=== PATIENT | male | born 1995 ===

== ENCOUNTER 2020-08-27 12:52 | Outpatient (REF) | payer OTHER, SELFPAY ==
[2020-08-27 14:45] LABS: Monotest Negative (Negative)
[2020-08-28 13:02] LABS: EBV-VCA IgM Ab <36.00 U/mL
== END 2020-08-27 12:53 | disposition home or self-care (01) ==
LOC: HO.LAB 12:52
PROVIDERS: Visit Provider Nurse Practitioner Family
DX: J02.9 Acute pharyngitis, unspecified (principal); Z20.822 Contact with and (suspected) exposure to COVID-19
CPT/HCPCS: 36415; 86308; 86664; 86665; 87071; U0003

== ENCOUNTER 2021-04-27 08:54 | Outpatient (REF) | payer OTHER, SELFPAY | END 2021-04-27 08:55 | disposition home or self-care (01) | LOC: HO.HMGCLDS 08:54 | PROVIDERS: Visit Provider Internal Medicine | DX: Z20.822 Contact with and (suspected) exposure to COVID-19 (principal) | CPT/HCPCS: C9803; U0003; U0005 ==

== ENCOUNTER 2024-03-18 08:51 | Outpatient (AMB) | payer BC, SELFPAY ==
[2024-03-18 08:53] VITALS: BP 114/62; PULSE 73; O2SAT 98; BMI 25.4
--- NOTE | 2024-03-18 08:53 | MHC.PC.OV ---
Vital Signs 03/18/24 08:53 Height 6 ft Weight 187 lb BMI 25.4 BP 114/62 Blood Pressure Location Lt brachial Position Sitting Pulse 73 Pulse Source Pulse Oximeter Pulse Oximetry (%) 98 Oxygen Delivery Method Room Air Intake Visit Reasons: PE Intake Note: Patient is here today for a physical. Saturation Diver Required: No Allergies No Known Allergies Allergy (Verified 03/18/24 09:31) Medication List - Last Reconciled 03/18/24 by Akin Lau MD benzoyl peroxide 10% 1 appl topical DAILY valacyclovir 500 mg PO BID Tobacco use date assessed: 03/18/24 Dental Screening Dental Screen Date: 03/18/24 Did you have a dental visit in the last 12 months?: Yes Did you have a dental problem in the last 6 months where you did not have access to dental care?: No Was dental information given to patient?: Patient has dentist HPI PE HPI Details 28-year-old male presents to the office requesting an annual physical. In addition patient would like treatment for his acne. Patient periodically gets an outbreak in the face and is well controlled with benzoyl peroxide. Patient is requesting a refill of the same. He also gets outbreaks of herpes simplex and would like to get a handle prescription for valacyclovir. He has had these outbreaks in the past few years. Patient also has disfigured nails that he would like to have examined. Patient reports that he has been trying [id number]-vtn-snsrolw medications for seborrheic dermatitis in his scalp. He is use Selsun and ketoconazole shampoo use. Symptoms improved but return. [facility] Medical History (Updated 03/18/24 @ 09:34 by Akin Lau MD) Acne Nail dystrophy Herpes simplex infection Social History Housing: Apartment Patient Tobacco Use Status: Never used Tobacco service: No Current occupational status: employed Cognitive needs: No Hearing needs: No Vision needs: No Questionnaire PHQ-9 Over the last 2 weeks, how often have you been bothered by any of the following problems? 1. Little interest or pleasure in doing things: not at all 2. Feeling down, depressed, or hopeless: not at all 3. Trouble falling or staying asleep, or sleeping too much: not at all 4. Feeling tired or having little energy: not at all 5. Poor appetite or overeating: not at all 6. Feeling bad about yourself - or that you are a failure or have let yourself or your family down: not at all 7. Trouble concentrating on things, such as reading the newspaper or watching television: not at all 8. Moving or speaking so slowly that other people could have noticed. Or the opposite - being so fidgety or restless that you have been moving around a lot more than usual: not at all 9. Thoughts that you would be better off or of hurting yourself in some way: not at all Total score: 0 Depression Screening Interpretation: Negative Depression Screening Done: Yes 73302 - PHQ-9 Billing: Yes Source: Developed by Drs. Saurabh White, Marisela Mckeon, Robert Petersen and colleagues, with an educational hayder from [employer]. Thrive Questionnaire Date Thrive assessed: 03/18/24 I am a: Patient What is your living situation today?: I have a steady place to live Within the past 12 months, did the food you bought not last and you didn't have the money to get more?: Never true Within the past 12 months, did you worry whether your food would run out before you got money to buy more?: Never true Do you have trouble paying for medicines?: No Do you have trouble getting transportation to medical appointments?: No Do you have trouble paying your heating and electricity bill?: No Do you have trouble taking care of your child, family member or friend?: No Do you have trouble with day-to-day activities such as bathing, preparing meals, shopping, managing finances, etc.?: No Are you currently unemployed and looking for a job?: No Are you interested in more education?: No Please select the resources that you would like help with: None Currently or been in a relationship where the following occur: No concerns reported THRIVE Score: 0 AUDIT C Alcohol Use Questionnaire (AUDIT-C) 1. How often do you have a drink containing alcohol?: Monthly or less (once a month ) 2. How many drinks containing alcohol do you have on a typical day when you are drinking?: 1 or 2 3. How often do you have six or more drinks on one occasion?: Never Total Score: 1 KEYONNA-7 AMB Questionnaire KEYONNA-7 Date KEYONNA - 7 assessed: 03/18/24 Feeling nervous, anxious, or on edge: 0 = Not at all Not being able to stop or control worryin = Not at all Worrying too much about different things: 0 = Not at all Trouble relaxin = Not at all Being so restless that it is hard to sit still: 0 = Not at all Becoming easily annoyed or irritable: 0 = Not at all Feeling afraid as if something awful might happen: 0 = Not at all Total KEYONNA-7 score (0-4 normal; 5-9 mild; 10-14 moderate; 15-21 severe): 0 Source: Developed by Drs. Saurahb White, Marisela Mckeon, Robert Petersen and colleagues, with an educational hayder from [employer]. KEYONNA-7 Assessment Billing KEYONNA-7 Assessment Tool: KEYONNA-7 Assessment 69621 Physical exam (Primary Care) Vital Signs: Last Vital Signs Pulse 73 03/18/24 08:53 BP 114/62 03/18/24 08:53 Pulse Ox 98 03/18/24 08:53 Oxygen Delivery Method Room Air 03/18/24 08:53 Care Plan Goal for BP management: Blood pressure is in range. BMI result Body Mass Index 25.4 Tobacco/Smoking Status: Tobacco use Status Tobacco use date assessed 03/18/24 03/18/24 08:54 Patient Tobacco Use Status Never used Tobacco 03/18/24 09:01 PHQ-9: PHQ-9 Score PHQ-9: Total score 0 03/18/24 08:54 Depression Screening Interpretation: Negative Thrive Assessment: Date of Thrive Assessment Date Thrive assessed 03/18/24 03/18/24 08:54 Currently or been in a relationship where the following occur: No concerns reported Const General: cooperative and healthy appearing Nutritional Appearance: well nourished Orientation/consciousness: patient oriented x3 Limitations: no limitations HENMT Head: Yes normal to inspection Eyes General: appearance normal, both eyes and all related structures Neck Neck: Yes normal visual inspection Chest Chest palpation & inspection: normal palpation of entire chest wall Resp Effort & Inspection: normal respiratory effort Skin Other: Face: Scattered erythematous lesion. No active acne present. Neuro General: patient oriented x3 Extrem Other: Right and left foot: Dystrophic nails present. Assessment and Plan Assessment & Plan (1) Nail dystrophy: Code(s): L60.3 - Nail dystrophy Plan: Podiatry consult for nail biopsy and treatment of onychomycosis if present. (2) Herpes simplex infection: Code(s): B00.9 - Herpesviral infection, unspecified Plan: Prescription for valacyclovir called in. (3) Annual physical exam: Code(s): Z00.00 - Encounter for general adult medical examination without abnormal findings Plan Blood work has been ordered. Will call with the results. Medications: New valacyclovir 500 mg PO BID 10 tabs 1RF benzoyl peroxide 10% 1 appl topical DAILY 142 grams 0RF Coding Level of Care Code New Pt Level 4 (89313) New Pt Prev Care 18-39yr(52119 Diagnoses Nail dystrophy L60.3 Herpes simplex infection B00.9 Annual physical exam Z00.00 Additional Codes KEYONNA-7 Assessment Billing - KEYONNA-7 Assessment Tool: KEYONNA-7 Assessment 18624 ([id number])
== END 2024-03-18 09:20 | disposition home or self-care (01) ==
PROVIDERS: PCP Physician Assistant; Visit Provider Internal Medicine
DX: Z00.00 Encounter for general adult medical examination without abnormal findings (principal); L60.3 Nail dystrophy; B00.9 Herpesviral infection, unspecified
CPT/HCPCS: 99203; 99385

== ENCOUNTER 2025-04-18 14:57 | Outpatient (AMB) | payer OTHER, SELFPAY ==
[2025-04-18 15:07] VITALS: BP 120/52; PULSE 86; RESP 18; TEMP 36.3; O2SAT 97; BMI 25.4
--- NOTE | 2025-04-18 15:07 | A.OFFPC_ITS ---
Vital Signs 04/18/25 15:07 Height 6 ft Weight 187 lb 2 oz BMI 25.4 BP 120/52 L Blood Pressure Location Lt brachial Position Sitting Respiration 18 Pulse 86 Pulse Source Pulse Oximeter Temp 97.3 F Temp Source Temporal Artery Scan Pulse Oximetry (%) 97 Oxygen Delivery Method Room Air Intake Visit Reasons: annual exam/kian Dr Tafoya Clinical Training Specialist Required: No Accompanied by: Self / Same As Patient Allergies No Known Allergies Allergy (Verified 04/18/25 15:16) Medication List - Last Reconciled 04/18/25 by OSIEL Hernandez benzoyl peroxide 10% 1 appl topical DAILY valacyclovir 500 mg PO BID Tobacco use date assessed: 04/18/25 Dental Screening Dental Screen Date: 04/18/25 Did you have a dental visit in the last 12 months?: Yes Did you have a dental problem in the last 6 months where you did not have access to dental care?: No Was dental information given to patient?: Patient has dentist HPI annual exam/kian Dr Tafoya HPI Details 29-year-old male presenting for annual p hysical Dentist: up to date Eye:up to date Snellen: Right: Left: Corrected vision: no STI screening: Colonoscopy:n/a Pap Smer:n/a PHQ-9: Flu: usually COVID: x1 Tdap: reports that this is within 10 years Diet: fluctuate when he is working out Exercise: working The patient reports experiencing severe dandruff, which has led him to keep his hair shorter than usual. He has tried various fndn-qog-feryowv treatments, including Nizoral and Selsun Blue, with limited success. Currently, he is using castor oil and coconut oil to manage the dryness and moisturize his scalp. The patient also experiences cold sores approximately every six to eight weeks. He takes medication during episodes, which typically resolves the sores by the third day. He recently underwent a health screening at work, which included blood pressure and glucose level checks, and was deemed healthy. He exercises regularly, att ending the gym four to five times a week and playing basketball for cardiovascular activity. His weight is currently 187 pounds, and he is 6'1 tall, with a BMI of 25.4. [facility] Medical History Acne Nail dystrophy Herpes simplex infection Social History Housing: Apartment Patient Tobacco Use Status: Never used Tobacco service: No Current occupational status: employed Cognitive needs: No Hearing needs: No Vision needs: No Questionnaire PHQ-9 Over the last 2 weeks, how often have you been bothered by any of the following problems? 1. Little interest or pleasure in doing things: not at all 2. Feeling down, depressed, or hopeless: not at all 3. Trouble falling or staying asleep, or sleeping too much: not at all 4. Feeling tired or having little energy: not at all 5. Poor appetite or overeating: not at all 6. Feeling bad about yourself - or that you are a failure or have let yourself or your family down: not at all 7. Trouble concentrating on things, such as reading the newspaper or watching television: not at all 8. Moving or speaking so slowly that other people could have noticed. Or the opposite - being so fidgety or restless that you have been moving around a lot more than usual: not at all 9. Thoughts that you would be better off or of hurting yourself in some way: not at all Total score: 0 Depression Screening Interpretation: Negative Depression Screening Done: Yes 67622 - PHQ-9 Billing: Yes Source: Developed by Drs. Saurabh White, Marisela Mckeon, Robert Petersen and colleagues, with an educational hayder from [employer] Thrive Questionnaire Date Thrive assessed: 04/18/25 I am a: Patient What is your living situation today?: I have a steady place to live Within the past 12 months, did the food you bought not last and you didn't have the money to get more?: I choose not to answer this question Within the past 12 months, did you worry whether your food would run out before you got money to buy more?: I choose not to answer this question Do you have trouble paying for medicines?: No Do you have trouble getting transportation to medical appointments?: No Do you have trouble paying your heating and electricity bill?: No Do you have trouble taking care of your child, family member or friend?: No Do you have trouble with day-to-day activities such as bathing, preparing meals, shopping, managing finances, etc.?: No Are you currently unemployed and looking for a job?: No Are you interested in more education?: No Please select the resources that you would like help with: None Currently or been in a relationship where the following occur: I choose not to answer THRIVE Score: 0 AUDIT C Alcohol Use Questionnaire (AUDIT-C) 1. How often do you have a drink containing alcohol?: 2-4 times a month 2. How many drinks containing alcohol do you have on a typical day when you are drinking?: 3 or 4 3. How often do you have six or more drinks on one occasion?: Never Total Score: 3 KEYONNA-7 AMB Questionnaire KEYONNA-7 Date KEYONNA - 7 assessed: 04/18/25 Feeling nervous, anxious, or on edge: 0 = Not at all Not being able to stop or control worryin = Not at all Worrying too much about different things: 0 = Not at all Trouble relaxin = Not at all Being so restless that it is hard to sit still: 0 = Not at all Becoming easily annoyed or irritable: 0 = Not at all Feeling afraid as if something awful might happen: 0 = Not at all Total KEYONNA-7 score (0-4 normal; 5-9 mild; 10-14 moderate; 15-21 severe): 0 Source: Developed by Drs. Saurabh White, Marisela Mckeon, Robert Petersen and colleagues, with an educational hayder from [employer] KEYONNA-7 Assessment Billing KEYONNA-7 Assessment Tool: KEYONNA-7 Assessment 62490 Review of Systems Const Denies headache(s) Eyes Denies loss of vision ENT Denies vertigo, Denies dizziness, Denies headache(s) and Denies sore throat Card Denies chest pain, Denies leg edema and Denies lightheadedness Resp Denies cough, Denies hemoptysis and Denies wheezing GI Denies abdominal pain, Denies melena, Denies constipation, Denies diarrhea and Denies vomiting Denies dysuria, Denies urinary frequency and Denies urinary urgency Musc Denies arthralgias, Denies joint swelling, Denies numbness and Denies tingling Neuro Denies Abnormal speech present, Denies behavioral changes, Denies vertigo, Denies dizziness, Denies headache(s), Denies loss of vision, Denies memory loss, Denies numbness and Denies tingling Psych Denies anxiety, Denies behavioral changes, Denies depression, Denies memory loss and Denies panic attacks Augusto/Lymph Denies easy bleeding and Denies easy bruising Aller/Immun Denies wheezing Physical exam (Primary Care) Vital Signs: Last Vital Signs Temp 97.3 F 04/18/25 15:07 Pulse 86 04/18/25 15:07 Resp 18 04/18/25 15:07 BP 120/52 L 04/18/25 15:07 Pulse Ox 97 04/18/25 15:07 Oxygen Delivery Method Room Air 04/18/25 15:07 BMI result Body Mass Index 25.4 Tobacco/Smoking Status: Tobacco use Status Tobacco use date assessed 04/18/25 04/18/25 15:12 Patient Tobacco Use Status Never used Tobacco 04/18/25 15:12 PHQ-9: PHQ-9 Score PHQ-9: Total score 0 04/18/25 15:17 Depression Screening Interpretation: Negative Thrive Assessment: Date of Thrive Assessment Date Thrive assessed 04/18/25 04/18/25 15:12 Currently or been in a relationship where the following occur: I choose not to answer Const General: healthy appearing, no acute distress, alert and awake Nutritional Appearance: well nourished Orientation/consciousness: oriented to person, oriented to place and oriented to time HENMT Ears: TM's normal bilaterally General nose exam: Normal nasal mucous membranes and turbinates present Eyes Conjunctivae: conjunctivae normal Sclerae: sclerae normal Pupils: Equal, round and reactive pupils present Neck Neck: Yes no lymphadenopathy and Yes no JVD Thyroid: Thyroid normal Carotids: no bruits Resp Effort & Inspection: normal respiratory effort and not tachypneic Auscultation: no crackles, no rales, no rhonchi and no wheezes Cardio Rate: regular rate Rhythm: regular rhythm Heart sounds: no murmurs and normal S1 and S2 GI Palpation (GI): Soft to palpation, nontender, no hepatomegaly and no splenom egaly Auscultation: normal bowel sounds Skin General skin exam: no rashes or lesions noted and dry skin Neuro General: oriented to person, oriented to place and oriented to time Cranial nerves: Yes Equal, round and reactive pupils present Speech: No Abnormal speech present Gait exam (Neuro): Normal gait present Motor exam (neuro): no tremor noted Deep tendon reflexes (DTR's): Right triceps reflex intensity grade: 2+, Left triceps reflex intensity grade: 2+, Rt Biceps (C5, C6): 2+, Left biceps reflex intensity grade: 2+, Right brachioradialis reflex intensity grade: 2+, Left brachioradialis reflex intensity grade: 2+, Right patellar reflex intensity grade: 2+ and Left patellar reflex intensity grade: 2+ Extrem Right upper extremity: full ROM Left upper extremity: full ROM Right lower extremity: full ROM; no edema Left lower extremity: full ROM; no edema Psych Mental Status: mental status grossly normal Speech and movement: Normal speech and movement present Affect: normal affect Attitude: cooperative Thought process: Normal thought process present Coding Level of Care Code Est Pt Prev Care 18-39y(47161) Diagnoses Annual physical exam Z00.00 Acne, unspecified acne type L70.9 Acne type: unspecified acne Herpes simplex infection B00.9 Dandruff L21.0 Additional Codes PHQ-9 - 24278 - PHQ-9 Billing: Yes ([id number]) KEYONNA-7 Assessment Billing - KEYONNA-7 Assessment Tool: KEYONNA-7 Assessment 29154 ([id number]) Time Spent (min) 33 Assessment & Plan Assessment & Plan (1) Annual physical exam: Code(s): Z00.00 - Encounter for general adult medical examination without abnormal findings Category: Medical Plan: Preventative guidelines reviewed with the patient. He is up-to-date on most guidelines. Labs ordered, we will advise (2) Acne: Code(s): L70.9 - Acne, unspecified Category: Medical Qualifiers: Acne type: unspecified acne Qualified Code(s): L70.9 - Acne, unspecified Plan: Continue benzoyl peroxide 10% topically daily (3) Herpes simplex infection: Code(s): B00.9 - Herpesviral infection, unspecified Category: Medical Plan: valacyclovir 500mg bid refill RX (4) Dandruff: Code(s): L21.0 - Seborrhea capitis Category: Medical Plan: fluconazole 150mg q week x 4 weeks, plus ketoconazole 2 % topical 2xw ordered Plan Plan Patient was informed and verbally consented to the use of an ambient scribe for clinic note documentation during this visit. 1. Dandruff The patient is advised to use a medicated shampoo and let it sit for at least 10 minutes before rinsing to manage dandruff. A weekly oral medication is prescribed for four weeks due to the severity of the condition. If symptoms persist, a referral to dermatology may be considered for further management. 2. Cold Sores The patient is instructed to continue taking antiviral medication during episodes of cold sores. The medication typically resolves the sores by the third day of treatment. 3. Preventative Care: Blood Work For Organ Function Assessment Blood work is recommended to assess kidney and liver function, as well as cholesterol levels. The patient is advised to fast for 12 hours prior to the test. Results will provide insight into the patient's overall health status. Orders: Orders Complete Blood Count Auto Diff 04/18/25 Z00.00 - Encounter for general adult medical examination without abnormal findings Lipid Panel 04/18/25 Z00.00 - Encounter for general adult medical examination without abnormal findings UA CC w/rflx Micro + Cult 04/18/25 Z00.00 - Encounter for general adult medical examination without abnormal findings TSH reflex Free T4 04/18/25 Z00.00 - Encounter for general adult medical examination without abnormal findings Comprehensive [place]. Panel Fast 04/18/25 Z00. - Encounter for general adult medical examination without abnormal findings Vitamin D 25-OH Total 04/18/25 Z00.00 - Encounter for general adult medical examination without abnormal findings Medications: New fluconazole 150 mg PO QWEEK 4 tabs 0RF 4 weeks ketoconazole 2% 1 appl topical 2XW 120 mL 0RF Refilled valacyclovir 500 mg PO BID 10 tabs 0RF
--- OUTSIDE RECORDS SUMMARY | 2025-04-18 17:33 | XMS_ITS | Encounter Summary ---
Author Organization [facility] Address [address] [place] [address] Phone Care Team Providers Care Risk Modeler Name Role Phone Harman Monet MD Primary Care Provider [phone] Encounter Details Date Type Department Care Team (Late st Contact Info) Description 03/23/2017 Conversion Encounter [facility] [place] [address] [place] [address] Social History Tobacco Use Types Packs/Day Years Used Date Smoking Tobacco: Never Comments:Never smoker Sex and Gender Information Value Date Recorded Sex Assigned at Not on file Legal Sex Male 5:06 PM EDT Gender Identity Not on file Sexual Orientation Not on file documented as of this encounter Plan of Treatment Not on file documented as of this encounter Visit Diagnoses Not on filedocumented in this encounter Care Teams Risk Modeler Relationship Specialty Start Date End Date Harman Monet MD [address] [place] [address] PCP - General 03/17/17 01/26/23 documented as of this encounter
--- OUTSIDE RECORDS SUMMARY | 2025-04-18 17:33 | XMS_ITS | Encounter Summary ---
Author Organization [facility] Address [address] [place] [phone] Phone Care Team Providers Care Embroidery Supervisor Name Role Phone Harman Monet MD Primary Care Provider [phone] Encounter Details Date Type Department Care Team (Late st Contact Info) Description 07/06/2010 Documentation EM Family Medicine [address] [place] [address] Family Medicine, Physician [address] [place] [address] Social History Tobacco Use Types Packs/Day Years Used Date Smoking Tobacco: Never Assessed Sex and Gender Information Value Date Recorded Sex Assigned at Not on file Legal Sex Male 5:06 PM EDT Gender Identity Not on file Sexual Orientation Not on file documented as of this encounter Plan of Treatment Not on file documented as of this encounter Visit Diagnoses Not on filedocumented in this encounter Care Teams Embroidery Supervisor Relationship Specialty Start Date End Date Harman Monet MD [address] [place] [id number] PCP - General 03/17/17 01/26/23 documented as of this encounter
--- OUTSIDE RECORDS SUMMARY | 2025-04-18 17:33 | XMS_ITS | Clinical Summary ---
Author Organization [facility] Address [address] [place] [id number] Phone Care Team Providers Care Decision Science Analyst Name Role Phone Unavailable Primary Care Provider Unavailabl e Immunizations Immunization Administration Dates Next Due DTaP 5 01/04/2001, 8,1996, 997,1996 HPV, Quadrivalent 08/05/2014,11/06/2012,09/06/19 13 Hep A, Adult 12/16/2015 Hep A, ped/adol 08/05/2014 Hep B, ped/adol 1996,1996,1996 Hib (PRP-T) 08/28/1997, 7,1996, 996 IPV 01/04/2001 Influenza Split 07/19/2012,08/15/2011,06/08/2010 Influenza, intranasal, quadrivalent 08/05/2014 MMR 06/26/2000,05/30/1997 Meningococcal Conj (Menactra) MCV4P 08/05/2014,0 02/28/2008 OPV 1996,1996,1996 Tdap 02/28/2008 Family History Relation Name Status Comments Father Alive Father: Alive a nd well Half-Sister Alive Half sister (M) : Alive and well, Alive and well Mother Alive Mother: Alive a nd well Other Family history of Strabismus, Family history of Asthma, Family history of Diabetes mellitus Paternal Grandmother Paterna l grandmother: Breast Social History Tobacco Use Types Packs/Day Years Used Date Smoking Tobacco: Never Comments:Never smoker Sex and Gender Information Value Date Recorded Sex Assigned at Not on file Legal Sex Male 5:06 PM EDT Gender Identity Not on file Sexual Orientation Not on file Last Filed Vital Signs Vital Sign Reading Time Taken Comments Blood Pressure 115/66 12/20/2016 12:00 AM EDT Pulse 55 12/20/2016 12:00 AM EDT Temperature 35.6 C (96 F) 09/07/2011 12:00 AM EST Respiratory Rate - - Oxygen Saturation - - Inhaled Oxygen Concentration - - Weight 70.8 kg (156 lb) 12/20/2016 12:00 AM EDT Height 184.2 cm (6' 0.5 ) 12/20/2016 12:00 AM ED T Body Mass Index 20.87 12/20/2016 12:00 AM EDT Plan of Treatment Health Maintenance Due Date Last Done Comments Varicella Vaccines (1 of 2 - 13+ 2-dose series) 09/02/2014 DTaP,Tdap,and Td Vaccines (7 - Td or Tdap) 02/27/2018 02/28/2008, 01/04/2001, 01/13/1998, Additional history exists Influenza Vaccines (#1) 2025 08/05/20 14, 07/19/2012, 08/15/2011, Additional history exists COVID-19 Vaccine ( season) 2025 Hepatitis B Vaccines Completed 1996, 1996, 1996 HIB Vaccines Completed 08/28/1997, 11/06, 1996, Additional history exists MMR Vaccines Completed 06/26/2000, 05/30/1997 IPV Vaccines Completed 01/04/2001, 11/06, 1996, Additional history exists HPV Vaccines Completed 08/05/2014, 09/2012, 09/06/2012 Meningococcal Vaccine Completed 08/05/2014, 008 Hepatitis A Vaccines Completed 12/16/2015, 08/05/20 14 Men B Vaccine Aged Out No longer elig ible based on patient's age to complete this topic Pneumococcal Vaccine Aged Out No long er eligible based on patient's age to complete this topic
== END 2025-04-18 15:48 | disposition home or self-care (01) ==
LOC: HO.HMCH 14:58
DX: Z00.00 Encounter for general adult medical examination without abnormal findings (principal); L70.9 Acne, unspecified; B00.9 Herpesviral infection, unspecified; L21.0 Seborrhea capitis

== ENCOUNTER → 2025-04-18 14:57 | Outpatient (BNVA) | payer OTHER, SELFPAY | PROVIDERS: PCP Physician Assistant | DX: Z00.00 Encounter for general adult medical examination without abnormal findings (principal); L21.0 Seborrhea capitis; L70.9 Acne, unspecified; B00.9 Herpesviral infection, unspecified | CPT/HCPCS: 96127 ==

== ENCOUNTER 2025-04-25 08:05 | Outpatient (REF) | payer OTHER, SELFPAY ==
[2025-04-25 08:16] LABS: MANUAL DIFF FLAG NO
--- OUTSIDE RECORDS SUMMARY | 2025-04-25 08:25 | XMS_ITS | Clinical Summary ---
Author Organization [facility] Address [address] [place] [id number] Phone Care Team Providers Care Real Estate Assessor Name Role Phone Unavailable Primary Care Provider [...]
--- OUTSIDE RECORDS SUMMARY | 2025-04-25 08:25 | XMS_ITS | Encounter Summary ---
Author Organization [facility] Address [address] [place] [phone] Phone Care Team Providers Care Louver Mortiser Operator Name Role Phone Harman Monet MD Primary Care Provider [phone] Encounter Details Date Type Department Care Team (Late st Contact Info) Description 07/06/2010 Documentation EM Family Medicine [address] [place] [address] Family Medicine, Physician [address] [place] [address] Social History Tobacco Use Types Packs/Day Years [...] on filedocumented in this encounter Care Teams Louver Mortiser Operator Relationship Specialty Start Date End Date Harman Monet MD [address] [place] [id number] PCP - General 03/17/17 01/26/23 documented as of this encounter
--- OUTSIDE RECORDS SUMMARY | 2025-04-25 08:25 | XMS_ITS | Encounter Summary ---
Author Organization [facility] Address [address] [place] [address] Phone Care Team Providers Care Grey Tender Name Role Phone Harman Monet MD Primary Care Provider [phone] Encounter Details Date Type Department Care Team (Late st Contact Info) Description 03/23/2017 Conversion Encounter [facility] [place] [address] [place] [address] Social History Tobacco Use Types Packs/Day Years [...] on filedocumented in this encounter Care Teams Grey Tender Relationship Specialty Start Date End Date Harman Monet MD [address] [place] [address] PCP - General 03/17/17 01/26/23 documented as of this encounter
[2025-04-25 08:43] LABS: Hematocrit 42.0 % (42.0-52.0); Hemoglobin 14.1 g/dl (14.0-18.0); Imm Gran Abs Auto 0.02 X10*3/uL (0.00-0.03); Imm Gran Pct Auto 0.3 % (0.0-0.4); Lymphocytes Absolute Auto 2.2 X10*3/uL (1.2-4.9); Mean Corpuscular HGB Conc 33.6 g/dl (31.0-36.0); Mean Corpuscular Hemoglobin 26.8 pg (27.0-33.0); Mean Corpuscular Volume 79.7 fL (80.0-98.0); NRBC Abs Auto 0.000 X10*3/uL (0.0-0.012); NRBC Pct Auto 0.0 /100WBC (0.0-0.2); Platelet Count 146 X10*3/uL (160-400); Red Blood Count 5.27 X10*6/uL (4.60-5.80); White Blood Count 6.1 X10*3/uL (4.8-10.8)
[2025-04-25 09:27] LABS: Alanine Aminotransferase 20 U/L (0-40); Albumin Level 4.9 g/dL (3.5-5.0); Alkaline Phosphatase 66 U/L (39-117); Anion Gap 9 (12-20); Aspartate Amino Transferase 24 U/L (5-37); Blood Urea Nitrogen 17 mg/dL (9-16); Calcium 9.6 mg/dL (8.4-10.2); Carbon Dioxide 27 mmol/L (22-29); Chloride 109 mmol/L (96-108); Cholesterol 139 mg/dL (<200); Estimated Glomerular Filt Rate > 60; HDL Cholesterol 53 mg/dL (>40); Potassium 3.7 mmol/L (3.3-5.1); Sodium 141 mmol/L (135-145); Total Protein 7.5 g/dL (6.5-8.0); Triglycerides 65 mg/dL (<150)
[2025-04-25 09:57] LABS: Appearance Urine Clear; Glucose Urine UA Negative (Negative); PH 6.5 (5.0-9.0); Specific Gravity - Urine 1.025 (1.005-1.025); UMIC TRIGGER UACC YES
[2025-04-25 10:13] LABS: UACC Culture Trigger YES
== END 2025-04-25 08:06 | disposition home or self-care (01) ==
LOC: HO.LAB 08:05
DX: Z00.00 Encounter for general adult medical examination without abnormal findings (principal); Z13.6 Encounter for screening for cardiovascular disorders; Z13.0 Encounter for screening for diseases of the blood and blood-forming organs and certain disorders involving the immune mechanism; Z13.29 Encounter for screening for other suspected endocrine disorder
CPT/HCPCS: 36415; 80053; 80061; 81001; 81003; 82306; 84443; 85025; 87086